=== PATIENT | female | born 1935 | race Caucasian/White ===

== ENCOUNTER 2018-07-31 07:56 | Outpatient (CLI) | payer MEDICARE, OTHER | END 2018-07-31 07:57 | disposition home or self-care (01) | LOC: BICULT 07:56 | PROVIDERS: ATTEND Internal Medicine Gastroenterology | DX: R93.3 Abnormal findings on diagnostic imaging of other parts of digestive tract (principal); K74.60 Unspecified cirrhosis of liver; Z87.19 Personal history of other diseases of the digestive system | CPT/HCPCS: 76705 ==

== ENCOUNTER 2018-11-22 11:01 | Emergency (ER) | payer MEDICARE, OTHER ==
[2018-11-22 11:53] LABS: #Basophils 0.1 thou/uL (0.0-0.2); #Eosinphils 0.3 thou/uL (0.0-0.7); #Lymphocytes 3.1 thou/uL (1.20-3.40); #Monocytes 0.7 thou/uL (0.11-0.59); #Neutrophils 3.1 thou/uL (1.40-6.50); %Basophils 1.4 % (0.0-1.0); %Eosinophils 4.5 % (0.0-10.0); %Lymphocytes 42.1 % (21.0-51.0); Hemoglobin 13.9 g/dL (12.0-16.0); Mean Corpuscular HGB CONC 34.2 g/dL (32.0-36.0); Mean Corpuscular Hemoglobin 33.7 pg (27.0-31.0); Mean Corpuscular Volume 98.5 fL (78.0-98.0); Mean Platelet Volume 6.9 fL (7.4-10.4); Platelet Count 236 thou/uL (130-400); RBC Distribution Width 11.2 % (11.5-14.5); Red Blood Cell (RBC) Count 4.12 mill/uL (4.20-5.40); White Blood Cell (WBC) Count 7.3 thou/uL (4.8-10.8)
--- NOTE | 2018-11-22 11:55 | RAD ---
CHEST 2 VIEWS: Date: 11/22/18 HISTORY: Cough. COMPARISON: Radiograph dated 07/18/17. FINDINGS: Aorta is mildly tortuous. Mild S-shaped scoliosis thoracolumbar spine. No focal air space consolidati on, pneumothorax, or effusion. IMPRESSION: Chronic changes. No acute intrathoracic abnormality. POS: [facility]
[2018-11-22 12:19] LABS: ALT (SGPT) 16 U/L (8-55); AST (SGOT) 20 U/L (5-34); Alkaline Phosphatase 114 U/L (40-150); Anion Gap 15 mmol/L (10-20); BUN (Urea Nitrogen) 8 mg/dL (9.8-20.1); Bilirubin, Total 0.8 mg/dL (0.2-1.2); CK (CPK) 32 U/L (29-168); Calc. Creatinine Clearance 0 mL/min (70-130); Calcium 9.4 mg/dL (7.8-10.44); Carbon Dioxide 23 mmol/L (23-31); Chloride 97 mmol/L (98-107); Estimated GFR-MDRD 73; Globulin 3.8 g/dL (2.4-3.5); Glucose 146 mg/dL (83-110); Potassium 3.3 mmol/L (3.5-5.1); Protein, Total 7.8 g/dL (6.0-8.3); Sodium 132 mmol/L (136-145)
[2018-11-22 13:59] LABS: Bilirubin Negative (Negative); Blood, Urine Negative (Negative); Clarity CLEAR (Clear); Glucose, Urine (Dipstick) Negative (Negative); Leukocyte Negative (Negative); Nitrite Negative (Negative); Protein, Urine (Dipstick) Negative (Neg-Trace); Specific Gravity, Urine 1.013 (1.002-1.036); pH, Urine 6.5 (5.0-9.0)
== END 2018-11-22 14:25 | disposition home or self-care (01) ==
LOC: ERS 11:01
DX: B34.9 Viral infection, unspecified (principal); E03.9 Hypothyroidism, unspecified; I10 Essential (primary) hypertension; E11.9 Type 2 diabetes mellitus without complications; Z79.84 Long term (current) use of oral hypoglycemic drugs; Z79.899 Other long term (current) drug therapy
CPT/HCPCS: 36415; 71046; 80053; 81003; 82550; 83605; 85025; 87804; 94760

== ENCOUNTER 2019-01-18 07:25 | Outpatient (CLI) | payer MEDICARE ==
--- NOTE | 2019-01-18 08:46 | ULT ---
HEPATIC ULTRASOUND INCLUDING VASCULAR DUPLEX WITH COLOR AND SPECTRAL DOPPLER IMAGING: HISTORY: Cirrhosis. FINDINGS: Liver echogenicity is somewhat coarse. Status post cholecystectomy. The common bile duct is 0.6 cm. No distinct focal liver masses. The spleen is within normal limits in size. Vascular duplex demonstrates antegrade hepatic and portal venous flow. IMPRESSION: 1. Status post cholecystectomy without significant ductal dilatation. 2. Coarse liver echogenicity, nonspecific. No focal liver masses. POS: [facility]
== END 2019-01-18 07:26 | disposition home or self-care (01) ==
LOC: BICULT 07:25
PROVIDERS: ATTEND Internal Medicine Gastroenterology
DX: K74.60 Unspecified cirrhosis of liver (principal); R93.2 Abnormal findings on diagnostic imaging of liver and biliary tract; Z90.49 Acquired absence of other specified parts of digestive tract
CPT/HCPCS: 76705

== ENCOUNTER 2019-03-16 10:14 | Day surgery (SDC) | payer MEDICARE ==
[2019-03-15 14:59] VITALS: BMI 29.4
[2019-03-16] MEDS ORDERED: Fentanyl 100 MCG/2 ML VIAL ONE (11:39)
--- NOTE | 2019-03-16 13:40 | MRI ---
MR the lumbar spine with and without contrast INDICATION: Lumbar radiculopathy COMPARISON: Prior MR the lumbar spine dated March 16, 2013 TECHNIQUE: Multiplanar multisequence MR images were obtained of lumbar spine with and without IV cont rast. Contrast: 15 cc of MultiHance. FINDINGS: Bone marrow: Bone marrow signal intensity is within normal limits. There is Modic endplate degenerati ve change at L2-3. There is a bony hemangioma within the T10 vertebral body. Distal spinal cord and conus: Normal. Conus is seen to terminate at the L1-L2 level. Visualized retroperitoneum and paraspinal soft tissues: There is a 1.8 cm cyst involving the superior pole of the right kidney. No lymphadenopathy is demonstrated. Vertebral levels: L5-S1: There is grade 1 anterolisthesis of L5 on S1 which is stable. There is a broad-based disc bulg e and severe facet osteoarthrosis inducing mild to moderate central canal narrowing and [id number] left and mild right neural foraminal narrowing. The left-sided neural foraminal narr owing is slightly worsened on the prior exam. L4-5: There is a broad-based disc bulge with severe facet joint degenerative change inducing worsenin g moderate central canal narrowing. There is mild right and moderate left neural foraminal narrowing. This has worsened from the prior exam. L3-4: There is a worsening broad-based disc bulge and facet joint degenerative changes inducing mild central canal narrowing with moderate left and mild right neural foraminal narrowing. The neural foraminal narrowing appears stable. L2-3: There is a broad-based disc osteophyte complex inducing severe right and mild left neural kvng inal narrowing which is stable. L1-L2: There is a broad-based disc bulge and facet joint degenerative change with no appreciable cent ral canal or neural foraminal narrowing. T12-L1: There is a broad-based bulge but no appreciable central canal or neural foraminal narrowing. Postcontrast series: No abnormal enhancement demonstrated. IMPRESSION: 1. Worsening multilevel spondylosis of the lumbar spine with worsening central canal or neural forami nal narrowing as detailed above.
[2019-03-16] MEDS ORDERED: Gadobenate Dimeglumine 529 MG/1 ML (20ML VIAL) ONE (14:32)
[2019-03-16] MEDS ORDERED: Lidocaine 1% PF 5 ML VIAL ONE (15:52)
[2019-03-16] MEDS ORDERED: PROPOFOL 200 MG/20 ML VIAL ONE (15:52)
[2019-03-16] MEDS ORDERED: Ondansetron PF 4 MG/2 ML Vial ONE (15:52)
== END 2019-03-16 14:33 | disposition home or self-care (01) ==
LOC: MRI 10:14
PROVIDERS: ATTEND Neurological Surgery
DX: M47.26 Other spondylosis with radiculopathy, lumbar region (principal); M48.061 Spinal stenosis, lumbar region without neurogenic claudication; I10 Essential (primary) hypertension; E03.9 Hypothyroidism, unspecified; E11.9 Type 2 diabetes mellitus without complications; H54.8 Legal blindness, as defined in USA; Z79.899 Other long term (current) drug therapy; Z88.5 Allergy status to narcotic agent; Z88.6 Allergy status to analgesic agent; Z98.890 Other specified postprocedural states
CPT/HCPCS: 72158; 82565; A9577; J3010

== ENCOUNTER 2019-04-13 07:39 | Outpatient (CLI) | payer MEDICARE ==
--- NOTE | 2019-04-13 08:18 | BD ---
DEXA SCAN BILATERAL HIPS: Indication: Osteoporosis. FINDINGS: BMD (g/cm2) T-Score Right Femoral Neck: 0.49 -3.2 Total: 0.64 -2.5 Left Femoral Neck: 0.489 -3.2 Total: 0.65 -2.3 IMPRESSION: T scores indicate osteoporosis placing patient at significantly increased risk for fracture. 10 year fracture risk not reported due to low values of T score. Transcribed Date/Time: 04/13/2019 10:27 AM
== END 2019-04-13 07:40 | disposition home or self-care (01) ==
LOC: BICMAMMO 07:39
PROVIDERS: ATTEND Internal Medicine
DX: M81.0 Age-related osteoporosis without current pathological fracture (principal)
CPT/HCPCS: 77080

== ENCOUNTER 2020-05-29 05:07 | Outpatient (CLI) | payer MEDICARE, OTHER ==
[2020-05-29 16:20] LABS: Hemoglobin 7.9 g/dL (12.0-16.0); Mean Corpuscular HGB CONC 30.1 g/dL (32.0-36.0); Mean Corpuscular Hemoglobin 23.1 pg (27.0-31.0); Mean Corpuscular Volume 76.8 fL (78.0-98.0); Mean Platelet Volume 7.4 fL (7.4-10.4); Platelet Count 369 thou/uL (130-400); RBC Distribution Width 16.3 % (11.5-14.5); Red Blood Cell (RBC) Count 3.41 mill/uL (4.20-5.40)
[2020-05-29 16:32] LABS: Anion Gap 12 mmol/L (10-20); BUN (Urea Nitrogen) 10 mg/dL (9.8-20.1); Calc. Creatinine Clearance 0 mL/min (70-130); Calcium 8.8 mg/dL (7.8-10.44); Carbon Dioxide 24 mmol/L (23-31); Chloride 93 mmol/L (98-107); Estimated GFR-MDRD 65; Glucose 91 mg/dL (83-110); Potassium 3.7 mmol/L (3.5-5.1); Sodium 125 mmol/L (136-145)
[2020-05-30 14:01] LABS: SARS-CoV-2 MS2 Positive; SARS-CoV-2 N Gene Negative; SARS-CoV-2 S Gene Negative; SARS-CoV-2 orf1ab Negative
== END 2020-05-29 05:08 | disposition home or self-care (01) ==
LOC: LABBT 05:07
PROVIDERS: ATTEND Thoracic Surgery (Cardiothoracic Vascular Surgery)
DX: Z01.812 Encounter for preprocedural laboratory examination (principal); Z11.59 Encounter for screening for other viral diseases; I71.4 Abdominal aortic aneurysm, without rupture
CPT/HCPCS: 80048; 85027; U0003; 87635

== ENCOUNTER 2020-09-15 06:58 | Outpatient (CLI) | payer MEDICARE, OTHER ==
[2020-09-15 15:30] LABS: Hemoglobin 7.7 g/dL (12.0-16.0); Mean Corpuscular HGB CONC 30.1 G/DL (32.0-36.0); Mean Corpuscular Hemoglobin 23.4 PG (27.0-33.0); Mean Corpuscular Volume 77.8 fl (80.0-100.0); Mean Platelet Volume 9.1 fl (7.4-10.4); Platelet Count 346 10x3/uL (130-400); RBC Distribution Width 15.5 % (11.5-14.5); Red Blood Cell (RBC) Count 3.29 10x6/uL (3.90-5.20); White Blood Cell (WBC) Count 7.6 10x3/uL (4.5-11.0)
[2020-09-15 15:54] LABS: Anion Gap 20 mmol/L (10-20); BUN (Urea Nitrogen) 13 mg/dL (9.8-20.1); Calc. Creatinine Clearance 0 mL/min (70-130); Calcium 8.7 mg/dL (7.8-10.44); Carbon Dioxide 23 mmol/L (23-31); Chloride 95 mmol/L (98-107); Estimated GFR-MDRD 65; Glucose 108 mg/dL (83-110); Potassium 3.6 mmol/L (3.5-5.1); Sodium 134 mmol/L (136-145)
[2020-09-17 22:36] LABS: SARS-CoV-2 MS2 Positive; SARS-CoV-2 N Gene Negative; SARS-CoV-2 S Gene Negative; SARS-CoV-2 by NAA Not Detected (Not Detected); SARS-CoV-2 orf1ab Negative
--- NOTE | 2020-09-20 19:25 | EKG ---
Test Reason : PREOP Blood Pressure : / mmHG Vent. Rate : 069 BPM Atrial Rate : 069 BPM P-R Int : 186 ms QRS Dur : 082 ms QT Int : 400 ms P-R-T Axes : 069 032 047 degrees QTc Int : 428 ms Normal sinus rhythm Normal ECG Confirmed by JACKY CHAPA, DR. Siddiqui ([id number]) on 09/20/2020 7:24:41 PM Referred By: JAXON Confirmed By:DR. Artur RICO MD
== END 2020-09-15 06:59 | disposition home or self-care (01) ==
LOC: LABBT 06:58
PROVIDERS: ATTEND Thoracic Surgery (Cardiothoracic Vascular Surgery)
DX: Z01.818 Encounter for other preprocedural examination (principal); I71.4 Abdominal aortic aneurysm, without rupture; Z20.828 Contact with and (suspected) exposure to other viral communicable diseases
CPT/HCPCS: 80048; 85027; 86850; 86900; 86901; 86920; U0003; 87635

== ENCOUNTER 2020-09-15 21:28 | Emergency (ER) | payer MEDICARE ==
--- NOTE | 2020-09-15 22:09 | RAD ---
XR Wrist 3 Lt View STANDARD: 09/15/2020 9:30 PM CLINICAL INDICATION: Mechanical fall with left wrist pain COMPARISON: None. FINDINGS: Bones: There is diffuse osteopenia. No definite displaced wrist fracture is evident. Joints: There is widening the scapholunate interval which may reflect scapholunate ligament insuffici ency. 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 Soft Tissue: There is soft tissue swelling surrounding the left wrist.. IMPRESSION: 1. No definite displaced wrist fracture. 2. 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 3. Soft tissue swelling surrounding the left wrist..
[2020-09-15] MEDS ORDERED: Fentanyl 100 MCG/2 ML VIAL ONE ×2 (22:21→23:13)
[2020-09-15] MEDS ORDERED: Ondansetron ODT 4 MG TAB ONE (22:21)
[2020-09-18] MEDS ORDERED: MANNITOL IV SCH ×2 (12:30)
[2020-09-18] MEDS ORDERED: ADMIXTURE FEE IV SCH (12:30)
[2020-09-18] MEDS ORDERED: LACTATED RINGER S IV SCH ×2 (12:30)
[2020-09-18] MEDS ORDERED: METHYLPREDNISOLONE SOD SUCC IV SCH (12:30)
== END 2020-09-15 23:43 | disposition home or self-care (01) ==
LOC: ERS 21:28
DX: S63.302A Traumatic rupture of unspecified ligament of left wrist, initial encounter (principal); E03.9 Hypothyroidism, unspecified; I10 Essential (primary) hypertension; E78.00 Pure hypercholesterolemia, unspecified; W01.0XXA Fall on same level from slipping, tripping and stumbling without subsequent striking against object, initial encounter; Z79.899 Other long term (current) drug therapy; Z01.818 Encounter for other preprocedural examination; I71.4 Abdominal aortic aneurysm, without rupture; Z20.828 Contact with and (suspected) exposure to other viral communicable diseases
CPT/HCPCS: 29125; 73110; 80048; 85027; 86850; 86900; 86901; 86920; 93005; 96372; 99283; U0003; 87635; 93010; J3010; Q0162

== ENCOUNTER 2021-12-26 23:24 | Emergency (ER) | payer MEDICARE | END 2021-12-27 01:58 | disposition home or self-care (01) | LOC: ERS 23:24 | DX: M25.522 Pain in left elbow (principal); I10 Essential (primary) hypertension; E03.9 Hypothyroidism, unspecified; E78.00 Pure hypercholesterolemia, unspecified; Z87.19 Personal history of other diseases of the digestive system; Z79.899 Other long term (current) drug therapy ==

== ENCOUNTER 2022-02-08 21:55 | Emergency (ER) | payer MEDICARE ==
[2022-02-09] MEDS ORDERED: Acetaminophen 500 MG TAB ONE (00:21)
[2022-02-09] MEDS ORDERED: Ondansetron ODT 4 MG TAB ONE (00:21)
== END 2022-02-09 01:11 | disposition home or self-care (01) ==
LOC: ERS 21:55
DX: L89.151 Pressure ulcer of sacral region, stage 1 (principal); I10 Essential (primary) hypertension
CPT/HCPCS: 99283; Q0162

== ENCOUNTER 2022-03-25 07:52 | Emergency (ER) | payer OTHER, MEDICARE ==
[2022-03-25] MEDS ORDERED: HYDROcodone/Acetaminophen 10/325 mg Tablet ONE (08:10)
== END 2022-03-25 09:40 | disposition home or self-care (01) ==
LOC: ERS 07:52
DX: S42.291A Other displaced fracture of upper end of right humerus, initial encounter for closed fracture (principal); Z79.899 Other long term (current) drug therapy; W01.0XXA Fall on same level from slipping, tripping and stumbling without subsequent striking against object, initial encounter

== ENCOUNTER 2022-03-29 19:33 | Emergency (ER) | payer MEDICARE ==
[2022-03-29 20:35] LABS: #Eosinphils 0.4 thou/uL (0.0-0.7); #Lymphocytes 2.1 thou/uL (1.20-3.40); #Monocytes 0.7 thou/uL (0.11-0.59); #Neutrophils 3.3 thou/uL (1.40-6.50); %Basophils 0.3 % (0.0-1.0); %Eosinophils 6.4 % (0.0-10.0); %Lymphocytes 32.8 % (21.0-51.0); %Monocytes 10.6 % (0.0-10.0); Hemoglobin 7.1 g/dL (12.0-16.0); Mean Corpuscular HGB CONC 30.1 g/dL (32.0-36.0); Mean Corpuscular Hemoglobin 23.2 pg (27.0-31.0); Mean Corpuscular Volume 77.2 fL (78.0-98.0); Mean Platelet Volume 6.5 fL (7.4-10.4); Platelet Count 298 thou/uL (130-400); RBC Distribution Width 15.5 % (11.5-14.5); Red Blood Cell (RBC) Count 3.03 mill/uL (4.20-5.40); White Blood Cell (WBC) Count 6.5 thou/uL (4.8-10.8)
[2022-03-29] MEDS ORDERED: Ondansetron PF 4 MG/2 ML Vial ONE (20:35)
[2022-03-29 20:54] LABS: ALT (SGPT) 12 U/L (8-55); AST (SGOT) 19 U/L (5-34); Albumin 3.3 g/dL (3.4-4.8); Alkaline Phosphatase 130 U/L (40-110); Anion Gap 9 mmol/L (10-20); BUN (Urea Nitrogen) 14 mg/dL (9.8-20.1); Bilirubin, Total 0.5 mg/dL (0.2-1.2); Calc. Creatinine Clearance 0 mL/min (70-130); Calcium 8.4 mg/dL (7.8-10.44); Carbon Dioxide 27 mmol/L (23-31); Chloride 98 mmol/L (98-107); Globulin 3.8 g/dL (2.4-3.5); Glucose 107 mg/dL (83-110); Protein, Total 7.1 g/dL (5.8-8.1)
[2022-03-29] MEDS ORDERED: Fentanyl 100 MCG/2 ML VIAL ONE (20:58)
[2022-03-29 21:34] LABS: Sodium 131 mmol/L (136-145)
[2022-03-29 22:42] LABS: Bacteria/HPF None Seen HPF (None Seen); Bilirubin Negative (Negative); Blood, Urine Negative (Negative); Clarity Clear (Clear); Glucose, Urine (Dipstick) Normal (Negative); Ketone, Urine Negative (Negative); Leukocyte 25 Leu/uL (Negative); Nitrite Negative (Negative); Protein, Urine (Dipstick) Negative (Neg-Trace); RBC/HPF 0-3 HPF (0-3); Specific Gravity, Urine 1.017 (1.002-1.036); Squamous Epithelial 0-3 HPF (0-3); WBC/HPF 0-3 HPF (0-3)
== END 2022-03-29 22:48 | disposition home or self-care (01) ==
LOC: ERS 19:33
DX: L89.151 Pressure ulcer of sacral region, stage 1 (principal); I10 Essential (primary) hypertension; E78.5 Hyperlipidemia, unspecified; E03.9 Hypothyroidism, unspecified; D64.9 Anemia, unspecified; Z79.899 Other long term (current) drug therapy
CPT/HCPCS: 36415; 80053; 81003; 81015; 85025; 93005; 96374; 96375; J2405; J3010

== ENCOUNTER 2022-03-31 20:57 | Inpatient (IN) | payer MEDICARE ==
[~2022-03-31 20:57] MED LIST: Iopamidol-370 76% 500 ML 1 ML ONE
[2022-03-31 22:01] LABS: #Eosinphils 0.4 thou/uL (0.0-0.7); #Lymphocytes 2.1 thou/uL (1.20-3.40); #Monocytes 0.5 thou/uL (0.11-0.59); #Neutrophils 3.5 thou/uL (1.40-6.50); %Basophils 0.7 % (0.0-1.0); %Eosinophils 6.3 % (0.0-10.0); %Lymphocytes 31.7 % (21.0-51.0); %Monocytes 7.5 % (0.0-10.0); %Neutrophils 53.8 % (42.0-75.0); Hemoglobin 8.8 g/dL (12.0-16.0); Mean Corpuscular HGB CONC 30.6 g/dL (32.0-36.0); Mean Corpuscular Hemoglobin 23.6 pg (27.0-31.0); Mean Corpuscular Volume 77.2 fL (78.0-98.0); Mean Platelet Volume 6.9 fL (7.4-10.4); Platelet Count 387 thou/uL (130-400); Red Blood Cell (RBC) Count 3.72 mill/uL (4.20-5.40); White Blood Cell (WBC) Count 6.6 thou/uL (4.8-10.8)
[2022-03-31 22:21] LABS: ALT (SGPT) 11 U/L (8-55); AST (SGOT) 22 U/L (5-34); Albumin 3.6 g/dL (3.4-4.8); Alkaline Phosphatase 139 U/L (40-110); Anion Gap 13 mmol/L (10-20); BUN (Urea Nitrogen) 13 mg/dL (9.8-20.1); Bilirubin, Total 0.5 mg/dL (0.2-1.2); Calc. Creatinine Clearance 0 mL/min (70-130); Calcium 8.5 mg/dL (7.8-10.44); Carbon Dioxide 25 mmol/L (23-31); Chloride 99 mmol/L (98-107); Globulin 4.2 g/dL (2.4-3.5); Glucose 91 mg/dL (83-110); Protein, Total 7.8 g/dL (5.8-8.1); Sodium 133 mmol/L (136-145)
[2022-03-31 23:13] LABS: Bilirubin Negative (Negative); Blood, Urine Negative (Negative); Clarity Clear (Clear); Glucose, Urine (Dipstick) Normal (Negative); Ketone, Urine Negative (Negative); Leukocyte Negative Leu/uL (Negative); Nitrite Negative (Negative); Protein, Urine (Dipstick) Negative (Neg-Trace); Specific Gravity, Urine 1.011 (1.002-1.036); Urobilinogen Normal mg/dL (Less than 2)
[2022-03-31] MEDS ORDERED: HYDROcodone/Acetaminophen 7.5/325 mg Tablet ONE (23:18)
[2022-04-01] MEDS ORDERED: Ondansetron PF 4 MG/2 ML Vial IVP PRN (01:45)
[2022-04-01] MEDS ORDERED: Acetaminophen 325 MG TAB PO PRN (01:45)
[2022-04-01] MEDS ORDERED: Ondansetron ODT 4 MG TAB SL PRN (01:45)
[2022-04-01 02:16] VITALS: BMI 25.9
[2022-04-01] MEDS ORDERED: Senokot S 8.6-50 MG TAB PO PRN (07:44)
[2022-04-01] MEDS ORDERED: Levothyroxine Sodium 75 MCG TAB PO SCH (08:45)
[2022-04-01] MEDS ORDERED: Enoxaparin Sodium 30 MG/0.3 ML SYRINGE SC SCH (09:00)
[2022-04-01] MEDS: Famotidine 20 MG TAB PO SCH (09:02)
[2022-04-01] MEDS: Levothyroxine Sodium 75 MCG TAB PO SCH (09:02)
[2022-04-01] MEDS: traMADol HCl 50 MG TAB PO PRN ×2 (09:03→20:32)
[2022-04-01] MEDS: Enoxaparin Sodium 40 MG/0.4 ML SYRINGE SC SCH (09:04)
[2022-04-01 10:02] LABS: Thyroid Stimulating Hormone 23.6763 uIU/mL (0.35-4.94)
[2022-04-01 13:38] LABS: SARS-CoV-2 PCR by NAA Not Detected (NotDetected)
[2022-04-02 07:39] LABS: #Basophils 0.1 thou/uL (0.0-0.2); #Eosinphils 0.3 thou/uL (0.0-0.7); #Lymphocytes 2.3 thou/uL (1.20-3.40); #Monocytes 0.6 thou/uL (0.11-0.59); #Neutrophils 3.9 thou/uL (1.40-6.50); %Lymphocytes 31.8 % (21.0-51.0); %Monocytes 8.4 % (0.0-10.0); %Neutrophils 54.8 % (42.0-75.0); Mean Corpuscular HGB CONC 30.3 g/dL (32.0-36.0); Mean Corpuscular Hemoglobin 23.4 pg (27.0-31.0); Mean Corpuscular Volume 77.2 fL (78.0-98.0); Mean Platelet Volume 6.8 fL (7.4-10.4); Platelet Count 357 thou/uL (130-400); RBC Distribution Width 15.7 % (11.5-14.5); Red Blood Cell (RBC) Count 3.41 mill/uL (4.20-5.40); White Blood Cell (WBC) Count 7.1 thou/uL (4.8-10.8)
[2022-04-02 08:03] LABS: Anion Gap 11 mmol/L (10-20); BUN (Urea Nitrogen) 13 mg/dL (9.8-20.1); Calc. Creatinine Clearance 54 mL/min (70-130); Carbon Dioxide 25 mmol/L (23-31); Chloride 100 mmol/L (98-107); Glucose 87 mg/dL (83-110); Potassium 4.4 mmol/L (3.5-5.1); Sodium 132 mmol/L (136-145)
[2022-04-02] MEDS: traMADol HCl 50 MG TAB PO PRN ×2 (09:10→19:28)
[2022-04-02] MEDS: Famotidine 20 MG TAB PO SCH (09:10)
[2022-04-02] MEDS: Enoxaparin Sodium 40 MG/0.4 ML SYRINGE SC SCH (09:10)
[2022-04-03] MEDS: Levothyroxine Sodium 75 MCG TAB PO SCH (05:35)
[2022-04-03 06:58] LABS: Reticulocyte Count 1.8 % (0.5-1.5)
[2022-04-03 07:18] LABS: Hemoglobin 8.2 g/dL (12.0-16.0); Mean Corpuscular HGB CONC 29.8 g/dL (32.0-36.0); Mean Corpuscular Volume 77.3 fL (78.0-98.0); Mean Platelet Volume 6.7 fL (7.4-10.4); Platelet Count 362 thou/uL (130-400); RBC Distribution Width 15.7 % (11.5-14.5); Red Blood Cell (RBC) Count 3.54 mill/uL (4.20-5.40); White Blood Cell (WBC) Count 7.9 thou/uL (4.8-10.8)
[2022-04-03 07:25] LABS: ALT (SGPT) 9 U/L (8-55); AST (SGOT) 16 U/L (5-34); Albumin 3.1 g/dL (3.4-4.8); Alkaline Phosphatase 119 U/L (40-110); Anion Gap 12 mmol/L (10-20); BUN (Urea Nitrogen) 14 mg/dL (9.8-20.1); Bilirubin, Total 0.9 mg/dL (0.2-1.2); Calc. Creatinine Clearance 59 mL/min (70-130); Calcium 8.2 mg/dL (7.8-10.44); Carbon Dioxide 24 mmol/L (23-31); Chloride 96 mmol/L (98-107); Globulin 3.9 g/dL (2.4-3.5); Glucose 85 mg/dL (83-110); Iron 13 ug/dL (50-170); Iron Binding Capacity, Total 334 mcg/dL (265-497); Sodium 128 mmol/L (136-145)
[2022-04-03 07:38] LABS: #Eosinphils 0.3 thou/uL (0.0-0.7); #Lymphocytes 1.9 thou/uL (1.20-3.40); #Monocytes 0.7 thou/uL (0.11-0.59); %Basophils 0.4 % (0.0-1.0); %Eosinophils 4.1 % (0.0-10.0); %Lymphocytes 23.7 % (21.0-51.0); %Monocytes 8.7 % (0.0-10.0); %Neutrophils 63.1 % (42.0-75.0); Hypochromia SLIGHT = 6-15 cells (100X) (0-5/hpf); MDiff Complete? YES; Microcytosis SLIGHT = 6-15 cells (100X) (0-5/hpf); Platelet Morphology Comment Appears Adequate; Polychromasia SLIGHT = 2-3 cells (100X) (0-2/hpf)
[2022-04-03 07:40] LABS: Ferritin 25.77 ng/mL (10-291); Free T4 (Free Thyroxine) 0.59 ng/dL (0.70-1.48)
[2022-04-03] MEDS: Famotidine 20 MG TAB PO SCH (08:22)
[2022-04-03] MEDS: Enoxaparin Sodium 40 MG/0.4 ML SYRINGE SC SCH (08:23)
[2022-04-03] MEDS ORDERED: Levothyroxine Sodium 75 MCG TAB PO SCH (09:15)
[2022-04-03] MEDS ORDERED: Iron, Sodium Ferric Gluconate 250 MG in Sodium Chloride 0.9% 250 ML 250 ML IVPB SCH (10:00)
[2022-04-03] MEDS: Megestrol Acetate 40 MG TAB PO SCH ×2 (13:10→20:56)
[2022-04-03] MEDS: traMADol HCl 50 MG TAB PO PRN (21:10)
[2022-04-04] MEDS ORDERED: Levothyroxine Sodium 125 MCG TAB PO SCH (06:00)
[2022-04-04 06:17] LABS: #Eosinphils 0.2 thou/uL (0.0-0.7); #Lymphocytes 2.3 thou/uL (1.20-3.40); #Monocytes 0.9 thou/uL (0.11-0.59); #Neutrophils 4.4 thou/uL (1.40-6.50); %Basophils 0.3 % (0.0-1.0); %Lymphocytes 29.1 % (21.0-51.0); %Monocytes 11.8 % (0.0-10.0); %Neutrophils 55.9 % (42.0-75.0); Hemoglobin 8.2 g/dL (12.0-16.0); Mean Corpuscular Volume 76.6 fL (78.0-98.0); Mean Platelet Volume 6.8 fL (7.4-10.4); Platelet Count 360 thou/uL (130-400); RBC Distribution Width 15.7 % (11.5-14.5); Red Blood Cell (RBC) Count 3.54 mill/uL (4.20-5.40); White Blood Cell (WBC) Count 7.9 thou/uL (4.8-10.8)
[2022-04-04 06:27] LABS: Anion Gap 13 mmol/L (10-20); BUN (Urea Nitrogen) 13 mg/dL (9.8-20.1); Calc. Creatinine Clearance 61 mL/min (70-130); Calcium 8.5 mg/dL (7.8-10.44); Carbon Dioxide 23 mmol/L (23-31); Chloride 98 mmol/L (98-107); Glucose 87 mg/dL (83-110); Potassium 3.9 mmol/L (3.5-5.1); Sodium 130 mmol/L (136-145)
[2022-04-04 07:37] VITALS: BP 110/64; TEMP 98.1
[2022-04-04] MEDS: Enoxaparin Sodium 40 MG/0.4 ML SYRINGE SC SCH (09:05)
[2022-04-04] MEDS: Megestrol Acetate 40 MG TAB PO SCH (09:05)
[2022-04-04] MEDS: Famotidine 20 MG TAB PO SCH (09:05)
[2022-04-04] MEDS ORDERED: Magnesium Citrate 300 ML BOT PO SCH (11:00)
== END 2022-04-04 13:51 | DRG 812 ==
LOC: ERS 20:57 → T4-B 04-01 00:36 → OBSVTOIN 04-03 11:25
PROVIDERS: ADMIT Internal Medicine; ATTEND Family Medicine
DX: D50.9 Iron deficiency anemia, unspecified (principal); E87.1 Hypo-osmolality and hyponatremia; Z20.822 Contact with and (suspected) exposure to COVID-19; E03.9 Hypothyroidism, unspecified; I10 Essential (primary) hypertension; E78.5 Hyperlipidemia, unspecified; K74.60 Unspecified cirrhosis of liver; E78.00 Pure hypercholesterolemia, unspecified; W19.XXXD Unspecified fall, subsequent encounter; R62.7 Adult failure to thrive; R29.6 Repeated falls; Z88.2 Allergy status to sulfonamides; Z88.5 Allergy status to narcotic agent; Z79.890 Hormone replacement therapy; S72.001G Fracture of unspecified part of neck of right femur, subsequent encounter for closed fracture with delayed healing; Z68.25 Body mass index [BMI] 25.0-25.9, adult
CPT/HCPCS: 36415; 36416; 70551; 71275; 80048; 80053; 81003; 82607; 82728; 82746; 83540; 83550; 83880; 84439; 84443; 84481; 84484; 85025; 85046; 93005; 94760; J1650; J2916; J7050; Q9967; S0179; U0003; U0005

== ENCOUNTER 2023-01-17 11:00 | Emergency (ER) | payer MEDICARE | END 2023-01-17 14:14 | disposition home or self-care (01) | LOC: ERS 11:00 | DX: M25.522 Pain in left elbow (principal); K62.89 Other specified diseases of anus and rectum; E03.9 Hypothyroidism, unspecified; I10 Essential (primary) hypertension; E78.00 Pure hypercholesterolemia, unspecified ==

== ENCOUNTER 2024-08-11 14:26 | Outpatient (CLI) | payer MEDICARE | END 2024-08-11 14:27 | disposition home or self-care (01) | LOC: BICRAD 14:26 | PROVIDERS: ATTEND Family Medicine | DX: M54.50 Low back pain, unspecified (principal); M47.816 Spondylosis without myelopathy or radiculopathy, lumbar region; M41.9 Scoliosis, unspecified | CPT/HCPCS: 72100 ==

== ENCOUNTER 2024-09-09 12:57 | Day surgery (SDC) | payer MEDICARE ==
[2024-09-09] MEDS: IRON DEXTRAN IVPB SCH (13:54)
[2024-09-09] MEDS: SODIUM CHLORIDE 0.9% IVPB SCH (13:54)
[2024-09-09 15:04] VITALS: BP 114/59; TEMP 98.3
== END 2024-09-09 17:08 | disposition home or self-care (01) ==
LOC: ONC/OP 12:57
PROVIDERS: ATTEND Family Medicine
DX: D50.9 Iron deficiency anemia, unspecified (principal); Z88.6 Allergy status to analgesic agent; Z88.5 Allergy status to narcotic agent; Z88.2 Allergy status to sulfonamides
CPT/HCPCS: 96365; 96366; J1750; J7050

== ENCOUNTER 2025-04-07 11:14 | Outpatient (CLI) | payer MEDICARE | END 2025-04-07 11:15 | disposition home or self-care (01) | LOC: BICRAD 11:14 | PROVIDERS: ATTEND Family Medicine | DX: M25.472 Effusion, left ankle (principal); M79.672 Pain in left foot ==